=== PATIENT | male | born 1950 | race Caucasian/White ===

== ENCOUNTER 2024-07-21 16:05 | Emergency (ER) | payer OTHER ==
[~2024-07-21] VITALS: Ht 180.3 cm; Wt 108.9 kg
[~2024-07-21 16:05] MED LIST: ATOR10 PO; IBUP200 PO; LANS30EC PO; METO25ER PO; NAPR220 PO; NITR.4SL SL
[2024-07-21 16:18] VITALS: BP 143/81
[2024-07-21] MEDS ORDERED: Fluorescein Sod 1MG Opth Strips LEFTEYE ONE (16:25)
[2024-07-21] MEDS ORDERED: Tetracaine HCl/Pf 0.5% Opth Soln 4 ml LEFTEYE ONE (16:25)
[2024-07-21] MEDS ORDERED: Ciprofloxacin2.5 ML LEFTEYE (16:45)
== END 2024-07-21 16:47 | disposition home or self-care (01) ==
LOC: ER 16:05
DX: S05.02XA Injury of conjunctiva and corneal abrasion without foreign body, left eye, initial encounter (principal); I25.2 Old myocardial infarction; Z88.8 Allergy status to other drugs, medicaments and biological substances; Z79.899 Other long term (current) drug therapy; W44.8XXA Other foreign body entering into or through a natural orifice, initial encounter
CPT/HCPCS: 99283; A9270